=== PATIENT | female | born 2000 | race Caucasian/White ===

== ENCOUNTER 2024-06-03 15:49 | Day surgery (SDC) | payer OTHER ==
[2024-06-03] MEDS ORDERED: Naloxone 0.4 MG/ML SDV IVPUSH PRN (16:32)
[2024-06-03] MEDS: fentaNYL 100 MCG/2 ML SDV IVPUSH ONE ×2 (17:16→20:05)
[2024-06-03] MEDS: Ondansetron 4 MG/2 ML SDV IVPUSH ONE ×2 (17:17→20:05)
[2024-06-03 18:03] LABS: BASOPHILS PERCENT AUTO 0.2 % (0.0-1.0); EOSINOPHILS PERCENT AUTO 0.1 % (0.0-6.0); HEMOGLOBIN 13.4 gm/dl (12.0-16.0); IMMATURE GRAN ABSOLUTE AUTO 0.05 K/mm3 (0.00-0.05); IMMATURE GRAN PERCENT AUTO 0.4 % (0.0-0.4); LYMPHOCYTES ABSOLUTE AUTO 0.7 K/mm3 (1.0-4.8); LYMPHOCYTES PERCENT AUTO 4.8 % (24.0-44.0); MEAN CORPUSCULAR HEMOGLOBIN 24.8 pg (28.0-32.0); MEAN CORPUSCULAR HGB CONC 32.7 g/dl (32.0-36.0); MEAN CORPUSCULAR VOLUME 75.9 fl (83.0-99.0); MEAN PLATELET VOLUME 9.5 fl (9.4-12.3); MONOCYTES ABSOLUTE AUTO 0.7 K/mm3 (0.0-0.8); MONOCYTES PERCENT AUTO 5.3 % (0.0-8.0); NEUTROPHILS ABSOLUTE AUTO 12.4 K/mm3 (1.8-7.7); NEUTROPHILS PERCENT AUTO 89.2 % (41.0-71.0); PLATELET COUNT,PLT 191 K/mm3 (150-400); WHITE BLOOD CELL COUNT,WBC 13.87 K/mm3 (3.9-11.3)
[2024-06-03 18:42] LABS: LACTIC ACID 1.9 mmol/L (0.4-2.0)
[2024-06-03 18:58] LABS: A/G RATIO 1.2 (1-2); ALBUMIN 4.4 g/dl (3.4-5.0); ANION GAP 19.3 (5-15); BILIRUBIN TOTAL 0.6 mg/dL (0.2-1.0); BUN/CREATININE RATIO 8.6 (14-18); CREATININE 0.7 mg/dL (0.55-1.02); EST CRCL DRUG DOSING (CG) 106.09 mL/min; POTASSIUM,K 3.3 mEq/L (3.5-5.1)
[2024-06-03] MEDS: Sodium Chloride 0.9% 1,000 ML IV SCH (19:10)
[2024-06-03] MEDS ORDERED: Propofol 200 MG/20 ML SDV ONE ×3 (20:45)
[2024-06-03] MEDS ORDERED: Ketamine 200 MG/20 ML MDV ONE (20:45)
[2024-06-03] MEDS ORDERED: Dexamethasone 4 MG/ML 5 ML MDV ONE (20:49)
[2024-06-03] MEDS ORDERED: Ondansetron 4 MG/2 ML SDV ONE (20:49)
[2024-06-03] MEDS ORDERED: Sodium Chloride 0.9% 10 ML Syringe FLUSH PRN (20:54)
[2024-06-03] MEDS ORDERED: Lactated Ringers 1,000 ML IV ONE (21:00)
[2024-06-03] MEDS ORDERED: Lactated Ringers 1,000 ML IV SCH (21:00)
[2024-06-03] MEDS ORDERED: Ketorolac 30 MG/ML SDV ONE (21:22)
[2024-06-03] MEDS: Lidocaine 1% with EPINEPHrine 1:100,000 20 ML MDV ONE (21:22)
[2024-06-03] MEDS ORDERED: Methylergonovine 0.2 MG/1 ML Amp ONE (21:25)
[2024-06-03] MEDS: Doxycycline Monohydrate 100 MG Cap PO ONE (22:09)
== END 2024-06-03 21:00 | disposition critical access hospital (66) ==
LOC: JD.SDS 15:49 → JD.ED 15:49 → JD.SDS 21:00
PROVIDERS: ATTEND Obstetrics & Gynecology
DX: O36.4XX0 Maternal care for intrauterine death, not applicable or unspecified (principal); O03.4 Incomplete spontaneous abortion without complication; Z3A.00 Weeks of gestation of pregnancy not specified
CPT/HCPCS: 36415; 76830; 80053; 83605; 84702; 85025; 96361; 96374; 96375; 96376; 99285; A9270; J1100; J1885; J2210; J2405; J2704; J3010; J7030; J7120; 01965; 99140; J3490